=== PATIENT | male | born 1965 | race Caucasian/White ===

== ENCOUNTER 2021-08-23 14:04 | Emergency (ER) | payer MEDICAID ==
[2021-08-23] MEDS ORDERED: Buprenorphine/Naloxone 8-2 MG Tab.SL SL ONE (14:49)
== END 2021-08-23 15:06 | disposition home or self-care (01) ==
LOC: JP.ED 14:04
DX: F11.10 Opioid abuse, uncomplicated (principal); F17.200 Nicotine dependence, unspecified, uncomplicated
CPT/HCPCS: 99282; 99284; J0574-GY